=== PATIENT | female | born 1975 | race Caucasian/White ===

== ENCOUNTER 2018-04-02 09:09 | Day surgery (SDC) | payer BC ==
[2018-04-02] MEDS ORDERED: MIDAZOLAM 1 MG/ML 2 ML INJ ×2 (11:02→11:03)
[2018-04-02] MEDS ORDERED: FENTAnyl 50 MCG/ML VIAL (11:03)
== END 2018-04-02 12:07 | disposition home or self-care (01) ==
LOC: GIL 09:09
DX: R19.4 Change in bowel habit (principal); K29.50 Unspecified chronic gastritis without bleeding; K21.9 Gastro-esophageal reflux disease without esophagitis; K57.90 Diverticulosis of intestine, part unspecified, without perforation or abscess without bleeding; K64.8 Other hemorrhoids; E11.9 Type 2 diabetes mellitus without complications
CPT/HCPCS: 43239; 82962; 88305; 88312